=== PATIENT | female | born 1980 | race Two or more races ===

== ENCOUNTER → 2016-07-03 | Outpatient (CLI) | payer BC | LOC: RAD 10:28 | PROVIDERS: ATTEND Orthopaedic Surgery | DX: M25.531 Pain in right wrist (principal) | CPT/HCPCS: 73223; A9576 ==

== ENCOUNTER → 2016-07-09 | Outpatient (CLI) | payer BC ==
[2016-07-11 08:08] LABS: CYCLIC CITRUL PEPTIDE IGG/A AB 4 units (0-19)
== END ==
LOC: OD 09:27
PROVIDERS: ATTEND Orthopaedic Surgery
DX: M67.431 Ganglion, right wrist (principal); C77.9 Secondary and unspecified malignant neoplasm of lymph node, unspecified; I89.0 Lymphedema, not elsewhere classified
CPT/HCPCS: 36415; 85652; 86038; 86140; 86200; 86430